=== PATIENT | female | born 1990 | race Caucasian/White ===

== ENCOUNTER 2017-11-01 18:12 | Inpatient (IN) | payer MEDICAID ==
[~2017-11-01] VITALS: Ht 162.6 cm; Wt 59.0 kg
[2017-11-01] MEDS ORDERED: NALOXONE 0.4 MG/ML, 1ML IVPush ONE (18:30)
[2017-11-01 18:40] LABS: BASOPHILS # (AUTO) 0.02 x10^3/uL (0-0.1); BASOPHILS % (AUTO) 0 % (0-1); EOSINOPHILS # (AUTO) 0.09 x10^3/uL (0-0.4); EOSINOPHILS % (AUTO) 2 % (1-7); LYMPHOCYTES # (AUTO) 2.59 x10^3/uL (1-3.4); LYMPHOCYTES % (AUTO) 46 % (22-44); MD NO; MEAN CORPUSCULAR HEMOGLOBIN 30.8 pg (27.0-34.8); MEAN CORPUSCULAR HGB CONC 33.2 g/dL (32.4-35.8); MEAN CORPUSCULAR VOLUME 92.7 fL (80-100); MEAN PLATELET VOLUME 9.5 fL (7.4-10.4); MONOCYTES # (AUTO) 0.56 x10^3/uL (0.2-0.8); MONOCYTES % (AUTO) 10 % (2-9); NEUTROPHILS # (AUTO) 2.41 x10^3/uL (1.8-6.8); NEUTROPHILS % (AUTO) 43 % (42-75); PLATELET COUNT 190 x10^3/uL (130-400); RED BLOOD COUNT 4.57 x10^6/uL (3.82-5.3); RED CELL DISTRIBUTION WIDTH 13.3 % (9.6-15.2)
[2017-11-01 18:51] LABS: CALCIUM 8.9 mg/dL (8.5-10.1); CHLORIDE 110 mmol/L (98-107)
[2017-11-01 18:59] LABS: ALANINE AMINOTRANSFERASE 20 U/L (12-78); ALKALINE PHOSPHATASE 65 U/L (45-117); ANION GAP 11 mmol/L (5-15); BILIRUBIN,TOTAL 0.7 mg/dL (0.2-1.0); TOTAL PROTEIN 7.8 g/dL (6.4-8.2)
[2017-11-01 19:02] LABS: ACETAMINOPHEN < 2 mcg/mL (10-30); SALICYLATE LEVEL < 1.7 mg/dL (2.8-20.0)
[2017-11-02] MEDS ORDERED: SODIUM CHLORIDE 0.9% 1,000 ML IV ONE (00:01)
[2017-11-02] MEDS ORDERED: SODIUM CHLORIDE 0.9% 1,000ML IVBOLUS ONE (00:30)
[2017-11-02] MEDS ORDERED: ONDANSETRON 2MG/ML, 2ML IVPush PRN (02:00)
[2017-11-02 02:16] LABS: AMPHETAMINE SCREEN, URINE Positive (Negative); BARBITURATE SCREEN, URINE Negative (Negative); BENZODIAZEPINE SCREEN, URINE Negative (Negative); CANNABINOID SCREEN, URINE Negative (Negative); COCAINE SCREEN, URINE Negative (Negative); METHADONE SCREEN, URINE Negative (Negative); OPIATE SCREEN, URINE Negative (Negative)
[2017-11-02 02:56] VITALS: BP 124/78
[2017-11-02] MEDS: D5%-0.9% NACL 1,000 ML IV SCH ×3 (03:13→12:23)
[2017-11-02 06:03] LABS: CALCIUM 7.8 mg/dL (8.5-10.1); CHLORIDE 120 mmol/L (98-107)
[2017-11-02 06:06] LABS: ALBUMIN 3.1 g/dL (3.4-5.0); ANION GAP 8 mmol/L (5-15); CREATININE 0.68 mg/dL (0.55-1.02)
[2017-11-02 07:46] VITALS: BP 103/70
[2017-11-02 13:45] VITALS: BP 113/72
[2017-11-02] MEDS: POTASSIUM CHLORIDE 20 MEQ TAB.ER.PRT PO SCH (16:44)
[2017-11-02] MEDS ORDERED: TOPI200T25 PO (17:02)
[2017-11-02 19:48] VITALS: BP 113/72
[2017-11-03 03:06] VITALS: BP 115/75
[2017-11-03 07:34] LABS: ALANINE AMINOTRANSFERASE 17 U/L (12-78); ALBUMIN 3.2 g/dL (3.4-5.0); ANION GAP 6 mmol/L (5-15); CALCIUM 8.3 mg/dL (8.5-10.1); CHLORIDE 120 mmol/L (98-107); CREATININE 0.73 mg/dL (0.55-1.02)
[2017-11-03 07:36] LABS: ALKALINE PHOSPHATASE 55 U/L (45-117); BILIRUBIN,TOTAL 0.5 mg/dL (0.2-1.0); TOTAL PROTEIN 6.5 g/dL (6.4-8.2)
[2017-11-03 08:14] VITALS: BP 100/63
[2017-11-03] MEDS: POTASSIUM CHLORIDE 20 MEQ TAB.ER.PRT PO SCH ×2 (09:11→16:33)
[2017-11-03] MEDS: TOPIRAMATE 25 MG TABLET PO SCH (09:11)
[2017-11-03 12:47] VITALS: BP 95/57
[2017-11-03 13:59] VITALS: BP 110/70
[2017-11-03 20:41] VITALS: BP 92/55
[2017-11-03] MEDS: RISPERIDONE 0.5 MG TABLET PO SCH (20:53)
[2017-11-04 07:30] VITALS: BP 106/68
[2017-11-04] MEDS: TOPIRAMATE 25 MG TABLET PO SCH (08:09)
[2017-11-04] MEDS: POTASSIUM CHLORIDE 20 MEQ TAB.ER.PRT PO SCH ×2 (08:09→17:44)
[2017-11-04 19:28] VITALS: BP 105/47
[2017-11-04] MEDS: RISPERIDONE 0.5 MG TABLET PO SCH (20:02)
[2017-11-04] MEDS: SODIUM BICARBONATE 650 MG TABLET PO SCH (20:42)
[2017-11-05] MEDS: TOPIRAMATE 25 MG TABLET PO SCH (08:08)
[2017-11-05] MEDS: SODIUM BICARBONATE 650 MG TABLET PO SCH (08:08)
[2017-11-05 08:20] VITALS: BP 118/78
== END 2017-11-05 08:45 | DRG 917 ==
LOC: EDBD 18:12 → ED 21:36 → EDIP 11-02 00:01 → 4WST 11-02 02:52 → 3E 11-03 14:17
PROVIDERS: ADMIT Hospitalist; ATTEND Hospitalist
DX: T50.902A Poisoning by unspecified drugs, medicaments and biological substances, intentional self-harm, initial encounter (principal); G92 Toxic encephalopathy; E87.2 Acidosis; F30.9 Manic episode, unspecified; E87.6 Hypokalemia; F40.10 Social phobia, unspecified; Z87.74 Personal history of (corrected) congenital malformations of heart and circulatory system; Y92.89 Other specified places as the place of occurrence of the external cause
CPT/HCPCS: 36415; 80048; 80053; 80307; 80329; 82040; 83735; 84703; 85025; 93005; 96361; 96374; J2310; J7042; G0480; J7030

== ENCOUNTER 2019-05-28 06:24 | Emergency (ER) | payer SELFPAY ==
[~2019-05-28] VITALS: Ht 162.6 cm; Wt 79.1 kg
[~2019-05-28 06:24] MED LIST: TOPI200T25 PO
[2019-05-28 06:27] VITALS: BP 128/70
--- NOTE | 2019-05-28 06:43 | NUR ---
pt ambulatory back from triage
[2019-05-28] MEDS ORDERED: CYCLOBENZAPRINE 10 MG TABLET ONE (07:25)
[2019-05-28] MEDS ORDERED: KETOROLAC 30 MG/1 ML ONE (07:25)
[2019-05-28] MEDS ORDERED: KETOROLAC 30 MG/1 ML IM ONE (08:00)
[2019-05-28] MEDS ORDERED: CYCLOBENZAPRINE 10 MG TABLET PO ONE (08:00)
== END 2019-05-28 08:40 | disposition home or self-care (01) ==
LOC: ED 08:29
DX: S39.012A Strain of muscle, fascia and tendon of lower back, initial encounter (principal); X58.XXXA Exposure to other specified factors, initial encounter; Y93.89 Activity, other specified; Y92.89 Other specified places as the place of occurrence of the external cause; Y99.8 Other external cause status
CPT/HCPCS: 96372; 99283; J1885

== ENCOUNTER 2019-06-17 00:01 | Emergency (ER) | payer OTHER ==
[~2019-06-17] VITALS: Ht 154.9 cm; Wt 78.0 kg
[2019-06-17 00:03] VITALS: BP 117/69
[2019-06-17] MEDS ORDERED: CYCLOBENZAPRINE 10 MG TABLET PO ONE (00:30)
[2019-06-17] MEDS ORDERED: KETOROLAC 60 MG/2 ML IM ONE (00:30)
[2019-06-17] MEDS ORDERED: CYCLOBENZAPRINE 10 MG TABLET ONE (01:01)
[2019-06-17] MEDS ORDERED: KETOROLAC 60 MG/2 ML ONE (01:01)
--- NOTE | 2019-06-17 01:36 | NUR ---
RN to bedside, patient reports extensive history. Is an accurate historian and recalls surgeries since . Laying facedown onto gurney, reports this is the only comfortable position. Patient assessed by provider, orders placed for imaging. Patient returned to room in wheelchair, allowed to remain as this is the most comfortable place. Unable to obtain vitals without making patient uncomfortable. Patient not here for acute bleeding or infection. Educated patient, aware unlikely to have process to affect vital signs. Understands risks and declines. Patient remains alert, oriented. Awaiting radiology read.
== END 2019-06-17 02:02 | disposition home or self-care (01) ==
LOC: ED 01:55
DX: M54.5 Low back pain (principal); Z72.89 Other problems related to lifestyle
CPT/HCPCS: 72110; 96372; 99283; J1885